=== PATIENT | male | born 1975 | race Caucasian/White ===

== ENCOUNTER 2017-02-15 10:29 | Emergency (ER) | payer BC ==
[~2017-02-15] VITALS: Ht 175.3 cm; Wt 84.0 kg
[2017-02-15 10:36] VITALS: TEMP 36.6; Ht 175.3 cm; Wt 84.0 kg
[2017-02-15] MEDS ORDERED: SODIUM CHLORIDE 0.9% 1000ML 1,000 ML IV STA (10:48)
[2017-02-15] MEDS ORDERED: LORAZEPAM 2 MG/ML 1 ML VIAL IV STA (10:48)
--- NOTE | 2017-02-15 11:13 | EMERGENCY ROOM VISIT NOTE ---
History Report prepared by Jessica: Amber Deluca Under the Supervision of: Dr. Raj Michaels M.D. First contact with patient: 10:34 Stated Complaint: RESPIRATORY History of Present Illness The patient is a 41 year old male who presents to the Emergency Room with complaints of constant respiratory symptoms beginning earlier this morning. The patient states that 4 days ago he had a syncopal episode while urinating. He passed out and hit his head on a glass shelf. He had some bleeding at the time and has had a slight headache. The patient states he has been feeling otherwise normal. This morning while he was at a meeting with a colleague, he began to feel warm. The patient developed numbness and tingling in his arms, legs, fingers, toes, and face. He states that he "just wasn't thinking clearly." He had a difficult time describing his symptoms. EMS was called and states that the patient was hyperventilating when they arrived on scene. The patient was brought to the ED for further evaluation. The patient denies abdominal pain. He is still complaining of a headache that he rates as a 1/10 in severity. Source of History: patient, EMS Onset: this morning Position: other (respiratory) Symptom Intensity: 1/10 Quality: other (hyperventilating) Timing: constant Associated Symptoms: + headache, + numbness (and tingling in extremities and face), No abdominal pain Review of Systems See HPI for pertinent positives & negatives. A total of 10 systems reviewed and were otherwise negative. Past Medical & Surgical Medical Problems: (1) Hemorrhoids Surgical Problems: (1) History of wisdom tooth extraction Family History Stroke Social History Smoking Status: Unknown if Ever Smoked Occupation Status: employed Current/Historical Medications No Active Prescriptions or Reported Meds Allergies Coded Allergies: No Known Allergies (Unverified , 02/15/17) Physical Exam Vital Signs Date Time Temp Pulse Resp B/P (MAP) Pulse Ox O2 Delivery O2 Flow Rate FiO2 02/15/17 13:19 74 16 122/70 99 02/15/17 12:29 68 20 117/72 02/15/17 10:40 81 02/15/17 10:36 36.6 91 32 161/65 100 Physical Exam GENERAL: Patient is a healthy-appearing well-nourished 41 year old male hyperventilating on HEAD: Normocephalic atraumatic EYES: Ocular movements intact pupils equal and react to light OROPHARYNX mucous membranes are moist no exudates present no erythema or edema present NECK: Supple no nuchal rigidity CHEST: Good equal expansion LUNGS: Clear and equal to auscultation CARDIAC: Normal S1 and S2 ABDOMEN: Soft nontender no guarding BACK: No CVA tenderness EXTREMITIES: No pain upon palpation normal muscle strength in all groups no clubbing cyanosis or edema NEURO: Patient is following commands and answering questions appropriately. Alert and oriented x3 Cranial Nerves 2-12 grossly intact Medical Decision & Procedures ER Provider Diagnostic Interpretation: Radiology results as stated below per my review and radiologist interpretation: CHEST ONE VIEW PORTABLE CLINICAL HISTORY: Pt c/o hyperventilation dyspnea COMPARISON STUDY: No previous studies for comparison. FINDINGS: Subtle interstitial prominence both lung bases. No evidence for focal infiltrate. No evidence for cardiac enlargement. Pulmonary apices are clear. IMPRESSION: Slight nonspecific interstitial prominence both lung bases. Otherwise negative study The above report was generated using voice recognition software. It may contain grammatical, syntax or spelling errors. Electronically signed by: Humberto Garg M.D. 02/15/2017 11:10 AM Dictated Date/Time: 02/15/2017 11:09 AM HEAD WITHOUT CONTRAST (CT) CLINICAL HISTORY: 41 years-old Male presenting with Pt c/o hitting head, syncopal episode. TECHNIQUE: Multidetector CT imaging of the head was performed without the use of intravenous contrast. IV contrast: None. A dose lowering technique was used consistent with the principles of ALARA (as low as reasonably achievable). COMPARISON: None. CT DOSE (mGy.cm): The estimated cumulative dose is 537.48 mGy.cm. FINDINGS: Stereo Equipment Repairer topogram: Unremarkable. Ventricles and sulci normal in size. Brain parenchyma normal in appearance with preserved kate-white differentiation. No mass effect or midline shift. No hemorrhage or acute territorial infarct. No extra-axial fluid collection. Paranasal sinuses and mastoid air cells clear. Calvarium intact. IMPRESSION: 1. No acute intracranial pathology. Electronically signed by: Saravanan Ngay M.D. 02/15/2017 12:43 PM Dictated Date/Time: 02/15/2017 12:41 PM Laboratory Results 02/15/17 11:17 Red Blood Count 5.28, Mean Corpuscular Volume 84.1, Mean Corpuscular Hemoglobin 30.1, Mean Corpuscular Hemoglobin Concent 35.8, Mean Platelet Volume 10.5, Neutrophils (%) (Auto) 58.0, Lymphocytes (%) (Auto) 31.1, Monocytes (%) (Auto) 8.1, Eosinophils (%) (Auto) 2.3, Basophils (%) (Auto) 0.3, Neutrophils # (Auto) 3.79, Lymphocytes # (Auto) 2.03, Monocytes # (Auto) 0.53, Eosinophils # (Auto) 0.15, Basophils # (Auto) 0.02 02/15/17 11:17 Test 02/15/17 11:09 02/15/17 11:17 Bedside Glucose 102 mg/dl (70-99) White Blood Count 6.53 K/uL (4.8-10.8) Red Blood Count 5.28 M/uL (4.7-6.1) Hemoglobin 15.9 g/dL (14.0-18.0) Hematocrit 44.4 % (42-52) Mean Corpuscular Volume 84.1 fL (80-100) Mean Corpuscular Hemoglobin 30.1 pg (25-34) Mean Corpuscular Hemoglobin Concent 35.8 g/dl (32-36) Platelet Count 230 K/uL (130-400) Mean Platelet Volume 10.5 fL (7.4-10.4) Neutrophils (%) (Auto) 58.0 % Lymphocytes (%) (Auto) 31.1 % Monocytes (%) (Auto) 8.1 % Eosinophils (%) (Auto) 2.3 % Basophils (%) (Auto) 0.3 % Neutrophils # (Auto) 3.79 K/uL (1.4-6.5) Lymphocytes # (Auto) 2.03 K/uL (1.2-3.4) Monocytes # (Auto) 0.53 K/uL (0.11-0.59) Eosinophils # (Auto) 0.15 K/uL (0-0.5) Basophils # (Auto) 0.02 K/uL (0-0.2) RDW Standard Deviation 39.3 fL (36.4-46.3) RDW Coefficient of Variation 13.0 % (11.5-14.5) Immature Granulocyte % (Auto) 0.2 % Immature Granulocyte # (Auto) 0.01 K/uL (0.00-0.02) Anion Gap 11.0 mmol/L (3-11) Est Creatinine Clear Calc Drug Dose 82.7 ml/min Estimated GFR () 87.8 Estimated GFR (Non- 75.7 BUN/Creatinine Ratio 11.6 (10-20) Calcium Level 9.5 mg/dl (8.5-10.1) Total Bilirubin 0.6 mg/dl (0.2-1) Direct Bilirubin 0.1 mg/dl (0-0.2) Aspartate Amino Transf (AST/SGOT) 18 U/L (15-37) Alanine Aminotransferase (ALT/SGPT) 30 U/L (12-78) Alkaline Phosphatase 46 U/L (45-117) Total Creatine Kinase 121 U/L (39-308) Creatine Kinase MB 1.1 ng/ml (0.5-3.6) Creatine Kinase MB Ratio 0.9 (0-3.0) Troponin I < 0.015 ng/ml (0-0.045) Total Protein 7.7 gm/dl (6.4-8.2) Albumin 4.2 gm/dl (3.4-5.0) Thyroid Stimulating Hormone (TSH) 1.340 uIu/ml (0.300-4.500) Labs reviewed by ED physician. ECG Indication: syncope Rate (beats per minute): 75 Rhythm: normal sinus Findings: no acute ischemic change, no ectopy ED Course 1034: Past medical records reviewed. The patient was evaluated in room B3. A complete history and physical examination was performed. 1048: Ativan 0.5 mg IV, NSS 1000 ml @ 999 mls/hr IV - pt refused medications 1247: I reassessed the patient at this time. He is feeling better and resting comfortably. I discussed the results and treatment plan with the patient. I answered all pertaining questions that he had. He expressed understanding and verbalized agreement. The patient will be discharged home. Medical Decision Etiologies such as metabolic, infection, hypo/hyperglycemia, electrolyte abnormalities, cardiac sources, intracerebral event, toxicologic, neurologic, as well as others were entertained. This is a 41-year-old male who presents emergency department who presents emergency department hyperventilating. Both the patient's and myself calmly reassured the patient and calmed him down to slow his breathing down. Once this happened the patient's numbness and tingling to the hands and feet resolved. Because the patient didn't lose consciousness the other day and hit his head he was sent for CAT scan of the head. This to show no evidence of an intracranial hemorrhage. He has a normal CBC normal renal profile. I did go over signs and symptoms of concussion with the patient as I believe that lately when he is experiencing that set off his hyperventilation. I do feel the patient is well enough to be discharged home for follow-up with his primary care physician. Patient was in agreement with the treatment plan. Medication Reconcilliation Current Medication List: was personally reviewed by me Blood Pressure Screening Patient's blood pressure: Elevated blood pressure Blood pressure disposition: Referred to PCP Impression Primary Impression: Dehydration Additional Impressions: Vasovagal episode Hypertension Scribe Attestation The scribe's documentation has been prepared under my direction and personally reviewed by me in its entirety. I confirm that the note above accurately reflects all work, treatment, procedures, and medical decision making performed by me. Departure Information Dispostion Home / Self-Care Prescriptions No Active Prescriptions or Reported Meds Referrals No Doctor, Assigned Forms HOME CARE DOCUMENTATION FORM, IMPORTANT VISIT INFORMATION, WORK / SCHOOL INSTRUCTIONS Patient Instructions Concussion Dc, ED Dehydration, ED Syncope Vasovagal, Hypertension Control, My [facility] Additional Instructions Increase fluid intake next 48 hours You were found to have an elevated blood pressure today (>120 sytolic or >90 diastolic). Per medicare guidelines, you need to follow up with this blood pressure screening with your Primary Care Physician (PCP). For a new PCP call [phone]. You have been examined and treated today on an emergency basis only. This is not a substitute for, or an effort to provide, complete comprehensive medical care. It is impossible to recognize and treat all injuries or illnesses in a single emergency department visit. It is therefore important that you follow up closely with your PCP. Call as soon as possible for an appointment. Thank you for your time and consideration. I look forward to speaking with you again soon. Please don't hesitate to call us if you have any questions. Problem Qualifiers Additional Impressions: Hypertension Hypertension type: unspecified Qualified Codes: I10 - Essential (primary) hypertension
[2017-02-15 11:57] LABS: BASO % 0.3 %; BASO ABS # 0.02 K/uL (0-0.2); COMPLETE YES; EOS % 2.3 %; HEMATOCRIT 44.4 % (42-52); IG% 0.2 %; LYMPH % 31.1 %; LYMPH ABS # 2.03 K/uL (1.2-3.4); MEAN CELL VOLUME 84.1 fL (80-100); MEAN CORPUSCULAR HEMOGLOBIN 30.1 pg (25-34); MEAN CORPUSCULAR HGB CONC 35.8 g/dl (32-36); MEAN PLATELET VOLUME 10.5 fL (7.4-10.4); MONO % 8.1 %; PLATELET COUNT 230 K/uL (130-400); RED BLOOD COUNT 5.28 M/uL (4.7-6.1); WHITE BLOOD COUNT 6.53 K/uL (4.8-10.8)
[2017-02-15 12:15] LABS: ALT/SGPT 30 U/L (12-78); BLOOD UREA NITROGEN 14 mg/dl (7-18); BUN/CREATININE RATIO 11.6 (10-20); CALCIUM 9.5 mg/dl (8.5-10.1); CARBON DIOXIDE 22 mmol/L (21-32); CHLORIDE 108 mmol/L (98-107); GLUCOSE 106 mg/dl (70-99); POTASSIUM 3.5 mmol/L (3.5-5.1); SODIUM 141 mmol/L (136-145)
[2017-02-15 12:26] LABS: ALKALINE PHOSPHATASE 46 U/L (45-117); AST/SGOT 18 U/L (15-37); CKMB/CK RATIO 0.9 (0-3.0)
--- NOTE | 2017-02-15 12:45 | DIAGNOSTIC IMAGING REPORT ---
HEAD WITHOUT CONTRAST (CT) CLINICAL HISTORY: 41 years-old Male presenting with Pt c/o hitting head, syncopal episode. TECHNIQUE: Multidetector CT imaging of the head was performed without the use of intravenous contrast. IV contrast: None. A dose lowering technique was used consistent with the principles of ALARA (as low as reasonably achievable). COMPARISON: None. CT DOSE (mGy.cm): The estimated cumulative dose is 537.48 mGy.cm. FINDINGS: Sales Team Leader topogram: Unremarkable. Ventricles and sulci normal in size. Brain parenchyma normal in appearance with preserved kate-white differentiation. No mass effect or midline shift. No hemorrhage or acute territorial infarct. No extra-axial fluid collection. Paranasal sinuses and mastoid air cells clear. Calvarium intact. IMPRESSION: 1. No acute intracranial pathology. Electronically signed by: Saravanan Nagy M.D. 02/15/2017 12:43 PM Dictated Date/Time: 02/15/2017 12:41 PM
[2017-02-15 13:19] VITALS: BP 122/70; PULSE 74; O2SAT 99
== END 2017-02-15 13:20 | disposition home or self-care (01) ==
LOC: C.EDB 10:35
DX: E86.0 Dehydration (principal); R55 Syncope and collapse; I10 Essential (primary) hypertension; Z82.3 Family history of stroke